=== PATIENT | female | born 1955 ===

== ENCOUNTER 2025-03-23 06:10 | Day surgery (SDC) | payer MEDICARE, BC, SELFPAY ==
[2025-03-12 14:10] VITALS: BMI 24.3
[2025-03-23] VITALS (8 sets, daily range): BP systolic 107–148; BP diastolic 64–83; BMI 24.3
[2025-03-23] MEDS: NEURONTIN 300 MG PO (07:11)
[2025-03-23] MEDS: TYLENOL 1000 MG PO (07:11)
[2025-03-23] MEDS: HEPARIN 5000 UNITS SC (07:12)
[2025-03-23] MEDS: EMEND 40 MG PO (07:17)
[2025-03-23] MEDS: NORMOSOL-R/PLASMALYTE-A 1000 IV (07:20)
--- NOTE | 2025-03-23 07:37 | PTCARENOTE ---
2nd case morning patient not ready in time due to having another patient first. OR staff waiting for RN but doctor was in room also. Waiting for doctor to finish so IV line could be started. Will monitor patient.
[2025-03-23 08:22] LABS: Turbo PTH 748.3 pg/ml (14.5-75.2)
[2025-03-23 09:35] LABS: Turbo PTH 49.5 pg/ml (14.5-75.2)
--- NOTE | 2025-03-23 10:17 | OR.RPT ---
Operative Report
Operative Report
Date of Operation: March 23, 2025
Preoperative Diagnosis: hyperparathyroidism - E210
Postoperative Diagnosis: Same
Surgeon: Maxime Aldrich M.D.
Operation: Neck exploration, Right Inferior Parathyroidectomy - 83016
Anesthesia: GET
Estimated Blood Loss: 10 cc
Drains: None
Specimen: Right Inferior neck nodule, rule out parathyroid adenoma
Complications: None
Procedure:
The patient was taken to the operating room and placed in the usual supine position. After adequate general endotracheal anesthesia was established, the patient's neck was extended, prepped, and draped in the typical sterile fashion. A 4 cm
transcervical incision was made two fingerbreadths above the sternal notch. The skin incision was made with the #15 blade, and this was taken through the skin into the subcutaneous tissue. The underlying platysma muscle was divided, and subplatysmal
flaps were created superiorly to the thyroid cartilage and inferiorly to the sternal notch. Strap muscles were identified and at the midline.
Attention was turned to the patient's right side of the neck. The right thyroid lobe was mobilized medially. During this process, the right recurrent laryngeal nerve was identified and preserved throughout the surgery. The right inferior and
superior parathyroid glands were identified. The superior gland looked normal in size, but the inferior gland appeared somewhat enlarged.
The attention was turned to the left side of the neck. The left thyroid lobe was mobilized medially. During this process, the left recurrent laryngeal nerve was identified and preserved throughout the surgery. The normal-appearing left superior and
inferior parathyroid glands were identified and preserved. The intraoperative PTH levels normalized.
After obtaining adequate hemostasis, the strap muscles were reapproximated with #3-0 Vicryl in a running fashion. The platysma muscle was reapproximated with #3-0 Vicryl in an interrupted fashion, and the skin was approximated with #4-0 Monocryl in
a running subcuticular fashion. The Steri-Strips and sterile dressings were placed. The patient tolerated the procedure well. The final instrument, needle, and sponge counts were correct. The patient was extubated and transferred to the PACU.
== END 2025-03-23 12:05 | disposition home or self-care (01) ==
LOC: SDS 06:10
PROVIDERS: ATTENDING PHYSICIAN Surgery; FAMILY PHYSICIAN Family Medicine
DX: E21.0 Primary hyperparathyroidism (principal)
CPT/HCPCS: 60500; 83970; 88305; 88331; C9250